=== PATIENT | male | born 1965 | race Caucasian/White ===

== ENCOUNTER 2021-03-25 22:07 | Emergency (ER) | payer BC ==
[2021-03-25 22:14] VITALS: BP 161/84; PULSE 71; RESP 18; TEMP 98.1
[2021-03-25] MEDS ORDERED: LIDOCAINE 1%-EPI 1:100,000 20 ML VIAL SQ STA (22:36)
--- NOTE | 2021-03-25 23:01 | ED ---
General Adult HPI - General Chief complaint: Wound/Laceration Stated complaint: leg lac Time Seen by Provider: 03/25/21 22:15 Source: patient Mode of arrival: ambulatory Limitations: no limitations - History of Present Illness Initial comments: 55-year-old male presents to the emergency room for a chief complaint of laceration. Patient reports that he was trying to cut a zip tie. States he accidentally cut through and cut his left calf. Patient states it is tender. States his tetanus is up-to-date. No other complaints or injuries. Patient has no other complaints at this time including shortness of breath, chest pain, abdominal pain, nausea or vomiting, headache, or visual changes. - Related Data Allergies Allergy/AdvReac Type Severity Reaction Status Date / Time No Known Allergies Allergy Verified 03/25/21 22:14 Review of Systems ROS Statement: Those systems with pertinent positive or pertinent negative responses have been documented in the HPI. ROS Other: All systems not noted in ROS Statement are negative. Past Medical History Past Medical History: No Reported History History of Any Multi-Drug Resistant Organisms: None Reported Past Surgical History: Appendectomy Past Psychological History: No Psychological Hx Reported Smoking Status: Never smoker Past Alcohol Use History: None Reported Past Drug Use History: None Reported General Exam Limitations: no limitations General appearance: alert, in no apparent distress Head exam: Present: atraumatic, normocephalic, normal inspection Eye exam: Present: normal appearance ENT exam: Present: normal exam, mucous membranes moist Neck exam: Present: normal inspection, full ROM. Absent: tenderness, meningismus, lymphadenopathy Respiratory exam: Present: normal lung sounds bilaterally. Absent: respiratory distress, wheezes, rales, rhonchi, stridor Cardiovascular Exam: Present: regular rate, normal rhythm, normal heart sounds. Absent: systolic murmur, diastolic murmur, rubs, gallop, clicks Extremities exam: Present: full ROM (Full range of motion of the left ankle and foot.), tenderness (Tenderness over the laceration site.), normal capillary refill (Capillary refill less than 2 seconds, DP pulse 2+ left lower extremity), other (Sensation intact left lower extremity. Patient does have a 3 cm laceration on the medial aspect of the left calf. No foreign body.). Absent: pedal edema, joint swelling, calf tenderness Course Vital Signs 03/25/21 22:08 Temperature 98.1 F Pulse Rate 71 Respiratory 18 Rate Blood Pressure 161/84 O2 Sat by Pulse 98 Oximetry Procedures - Laceration Laceration #1 Consent Obtained: verbal consent Indication: laceration Site: lower extremity Size (cm): 3 Description: linear Depth: simple, single layer Anesthetic Used: lidocaine 1%, with epi Anesthesia Technique: local infiltration Amount (mls): 4 Pre-repair: wound explored, irrigated extensively Type of Sutures: nylon Size of Sutures: 4-0 Number of Sutures: 5 Technique: simple, interrupted Patient Tolerated Procedure: well, no complications Medical Decision Making - Medical Decision Making Neurovascular status intact. Laceration repaired. Discussed return parameters as well as care instructions. Disposition Clinical Impression: Laceration Disposition: HOME SELF-CARE Condition: Good Instructions (If sedation given, give patient instructions): Care For Your Sti tches (ED), Laceration (ED) Additional Instructions: Please keep the area clean. Monitor for any signs of infection such as spreading or streaking redness, drainage, or fever return if these occur. Return if you have any other worsening symptoms. Otherwise return in 10 days for suture removal. Is patient prescribed a controlled substance at d/c from ED?: No Referrals: Anup Gutiérrez III, MD [Primary Care Provider] - 1-2 days Time of Disposition: 23:00
== END 2021-03-25 23:18 | disposition home or self-care (01) ==
LOC: EC 22:07
DX: S81.812A Laceration without foreign body, left lower leg, initial encounter (principal); Z90.49 Acquired absence of other specified parts of digestive tract; W26.8XXA Contact with other sharp object(s), not elsewhere classified, initial encounter
CPT/HCPCS: 12002; 96372; 99282

== ENCOUNTER 2025-04-02 09:46 | Day surgery (SDC) | payer BC ==
[~2025-04-02 09:46] MED LIST: LIDOCAINE 1% (10MG/ML) FOR IV START INTRADERMA PRN
[2025-04-02 10:16] VITALS: RESP 16; TEMP 97.6
[2025-04-02] MEDS: IV FLUID CONTINUATION 1,000 ML IV ONE (10:16)
[2025-04-02] MEDS: LACTATED RINGERS 1,000 ML IV SCH (10:20)
[2025-04-02] MEDS ORDERED: PROPOFOL 10 MG/ML 20 ML VIAL IV ONE (10:35)
--- NOTE | 2025-04-02 10:50 | P.PCN ---
Date of Procedure: 04/02/25 Procedure(s) Performed: BRIEF HISTORY: Patient is a 59-year-old pleasant white man scheduled for an elective colonoscopy as a part of screening for colon cancer. PROCEDURE PERFORMED: Colonoscopy. PREOPERATIVE DIAGNOSIS: Screening for colon cancer. IV sedation per Anesthesia. PROCEDURE: After informed consent was obtained, the patient, was brought into the endoscopy unit. IV sedation was administered by Anesthesia under continuous monitoring. Digital rectal examination was normal. Initially the Olympus CF-160 flexible video colonoscope was then inserted in the rectum, gradually advanced into the cecum without any difficulty. Careful examination was performed as the scope was gradually being withdrawn. Ileocecal valve and the appendiceal orifice were visualized and appeared normal. Prep was excellent. Mucosa of the cecum, ascending colon, transverse colon, descending colon, sigmoid colon, and rectum appeared normal. Retroflexion was performed in the rectum and no lesions were seen. The patient tolerated the procedure well. IMPRESSION: Normal-appearing colon from rectum to cecum no evidence of colorectal neoplasia. RECOMMENDATIONS: Findings of this examination were discussed with the patient as well as his family. He was advised to have repeat screening colonoscopy in 10 years..
[2025-04-02 11:11] VITALS: BP 110/70; PULSE 68
== END 2025-04-02 11:32 ==
LOC: ORWHC2ENDO 09:46
PROVIDERS: ATTEND Internal Medicine Gastroenterology
DX: Z12.11 Encounter for screening for malignant neoplasm of colon (principal)
CPT/HCPCS: 45378; J2704